=== PATIENT | male | born 1950 | race Caucasian/White ===

== ENCOUNTER → 2019-12-14 | Outpatient (CLI) | payer OTHER, MEDICARE ==
[~2019-12-14] MED LIST: ALEVE220 MG PO; ATORVASTATIN CA80 MG PO; COQ-10100 MG PO; MAGNESIUM250 M1 PO; TAMSULOSIN HCL0.4 MG PO; UNICOMPLEX M TA1 TA1 PO; VITAMIN B COMP1 EACH PO; VITAMIN C500 M1 PO; VITAMIN D3 COM1 EACH PO
== END ==
LOC: LAB 08:00
PROVIDERS: ATTEND Student in an Organized Health Care Education/Training Program
DX: Z01.812 Encounter for preprocedural laboratory examination (principal); Z11.59 Encounter for screening for other viral diseases

== ENCOUNTER 2019-12-19 08:05 | Day surgery (SDC) | payer OTHER, MEDICARE ==
[2019-12-12 13:14] LABS: HEMOGLOBIN 14.6 gm/dL (14.0-18.0); MCHC 33.9 g/dL (28.0-37.0); MCV 94.4 fL (80.0-100.0); RBC 4.55 mil/uL (4.50-6.00); RDW 13.3 % (10.5-14.5); WBC 4.3 thou/uL (4.0-11.0)
[2019-12-12 13:16] LABS: URINE BILIRUBIN NEGATIVE (Negative); URINE BLOOD NEGATIVE (Negative); URINE CLARITY CLEAR; URINE COLOR YELLOW; URINE GLUCOSE-RANDOM* NEGATIVE (Negative); URINE KETONES NEGATIVE (Negative); URINE LEUKOCYTES-REFLEX NEGATIVE (Negative); URINE NITRITE-REFLEX NEGATIVE (Negative); URINE PROTEIN (DIPSTICK) NEGATIVE (Negative); URINE SPECIFIC GRAVITY >= 1.030 (1.005-1.035); URINE UROBILINOGEN 0.2 E.U./dl (0.2-1.0)
[2019-12-12 13:22] LABS: CALCIUM 9.1 mg/dL (8.5-10.1); CREATININE 1.1 mg/dL (0.7-1.3); POTASSIUM 4.7 mmol/L (3.5-5.1)
[2019-12-12 13:28] LABS: PROTIME 10.7 Seconds (9.3-11.4)
--- NOTE | 2019-12-13 07:29 | EKG ---
[facility] [address] [place] [address] ELECTROCARDIOGRAM REPORT Name: TOMY GRANADOS Room #: PRE [facility]..#: [id number] Admission: Attend Phys: Alexander Barillas MD Discharge: Date of : 46 Report #: [id number] THIS REPORT FOR: cc: Yamileth Holly MD, Kerry B. MD Lundgren,Eros Burger MD [facility] ~ THIS REPORT FOR: //name// [facility] Test Date: 2019-12-12 Test Time: 13:16:32 Pat Name: TOMY GRANADOS Department: Room: Gender: Food Safety Specialist: [facility] : 1950 Requested By: Alexander Barillas Order Number: [id number] MD: Eros Miles Measurements Intervals [place] Rate: 57 P: 54 TN: 171 QRS: -31 QRSD: 103 T: 9 QT: 399 QTc: 389 Interpretive Statements Sinus bradycardia Left axis deviation Baseline wander in lead(s) II No previous ECG available for comparison Electronically Signed On 12-13-2019 7:29:19 CDT by Eros Miles [email or web address] <ELECTRONICALLY SIGNED> By: Eros Miles MD, [facility] 12/13/19 0729 1316 1316 Eros Miles MD, [facility] /EPI
[~2019-12-19] VITALS: Ht 182.9 cm; Wt 84.8 kg
[2019-12-19 09:28] VITALS: BP 149/74
[2019-12-19 13:12] VITALS: BP 128/69
--- NOTE | 2019-12-19 14:31 | NUR ---
PATIENT ADMITTED FROM OR, LEFT TOTAL HIP REPLACEMENT. PATIENT HAS GENARO DRESSING IN PLACE, KNEE HIGH TONIA HOSE, ICE PACK TO LEFT HIP AREA. PATIENT C/O PAIN WITH LEFT HIP/02/24. CALLED OR TO GET DR STALEY ORDER PAIN PAIN MEDS FOR 7-10 PAIN LEVEL, MORPHINE 2MG IV Q2HRS ORDERED, MORPHINE 2 MG IV GIVEN. VSS. PATIENT WANTS TO DISCHARGE TODAY, JENNY/PT WORKING WITH THE PATIENT HTIS AFTERNOON. AT BEDSIDE. PATIENT HAS RIGHT AV IV IN PLACE, IV FLUIDS ORDERED. NO C/O NAUSEA. WILL WONTINUE TO MONITOR.
[2019-12-19 21:09] VITALS: BP 126/69
--- NOTE | 2019-12-20 03:20 | NUR ---
ASSUMED PT CARE AT 1900. PT IS A&OX4. PAIN BEING MANAGED WITH PO PAIN MEDS. UP TO TOILET MULTIPLE TIMES TONIGHT, PT DOES WELL AMBULATING WITH WALKER AND STANDBY. RIGHT HIP DRESSING D/C/I. FLUIDS AND ANTIBIOTICS INFUSING PER ORDER. NO COMPLAINTS AT THIS TIME, WILL CONTINUE TO MONITOR.
[2019-12-20 04:23] VITALS: BP 113/55
[2019-12-20 06:45] LABS: HEMATOCRIT 33.5 % (42.0-52.0); MCH 33.5 pg (26.0-34.0); MCHC 35.8 g/dL (28.0-37.0); MCV 93.4 fL (80.0-100.0); RBC 3.58 mil/uL (4.50-6.00); WBC 8.9 thou/uL (4.0-11.0)
--- NOTE | 2019-12-20 09:19 | NUR ---
ASSESSMENT: CM REVIEWED CHART AND SPOKE WITH PATIENT. PT REPORTS THAT HE LIVES AT HOME WITH HIS . PT REPORTS ABOUT THREE STEPS TO ENTER THE HOME AND NO STEPS ONCE INSIDE. PT REPORTS THAT HE HAD BEEN INDEPENDENT WITH ADLS AND WAS USING A CANE JUST PRIOR TO ADMISSION. PT REPORTS HE HAS A 4 WHEEL WALKER AT HOME THAT WAS A FAMILY MEMBER BUT REPORTS HE IS NEEDING A 2 WHEEL WALKER. PT REPORTS NO PREFERENCE OF DME PROVIDER. CM CONTACTED LUCIANO AT [facility] WHO WILL DELIVER WALKER TO PATIENT. PT REPORTS HE HAS NOT HAD HH BEFORE OR BEEN TO A SNF. PT REPORTS HE HAS OUTPATIENT THERAPY ARRANGED AND STATES TOMORROW AT [facility]. PT REPORTS HE WILL HAVE NO FURTHER NEEDS FROM CM.
[2019-12-20 09:28] VITALS: BP 112/61
[2019-12-20 14:21] VITALS: BP 112/61
--- NOTE | 2019-12-20 15:30 | NUR ---
PT ASSESSED AT START OF SHIFT. AMBULATING OK BUT NEEDS TO BE REMINDED OF POSTURE FREQUENTLY. TEACHING DONE W/ WELL PT. PAIN MANAGED WELL W/ MEDS. DISCHARGED HOME THIS AFTERNOON W/ PLANS FOR OUTPT THERAPY TOMORROW.
--- NOTE | 2020-01-02 15:50 | O ---
[facility] [place] [address] OPERATIVE REPORT Name: TOMY GRANADOS Room #: DEP [facility]#: [id number] Admission: 12/19/19 Attend Phys: Alexander Barillas MD Discharge: 12/20/19 Date of : 46 Report #: [id number] THIS REPORT FOR: cc: Yamileth Holly MD, Kerry B. MD Abraham,Aelxander Harris MD ~ CC: Yamileth Barillas DATE OF SERVICE: 12/19/2019 PREOPERATIVE DIAGNOSIS: Right hip osteoarthritis. POSTOPERATIVE DIAGNOSIS: Right hip osteoarthritis. PROCEDURE: Right total hip arthroplasty. SURGEON: Alexander Barillas MD. FIRE ENGINE OPERATOR: Adamaris Alvarado PA-C. INDICATIONS FOR FIRE ENGINE OPERATOR: Throughout the case, extensive retraction and manipulation of the hip including dislocation and reduction was required. This was afforded to me by my assistant secretary. ANESTHESIA: LMA. IMPLANTS: [employer] size 56 R3 acetabular cup with 1 acetabular screw, a size 14 high offset Synergy Press-Fit stem and a size 40+4 Oxinium head. ESTIMATED BLOOD LOSS: 100 mL. COMPLICATIONS: None. SPECIMENS: None. CONDITION UPON LEAVING THE OPERATING ROOM: Stable. INDICATIONS FOR PROCEDURE: The patient is a 69-year-old gentleman with right hip osteoarthritis. He had failed conservative measures for this and after discussion with him, he elected for right total hip arthroplasty. DESCRIPTION OF PROCEDURE: Risks, benefits, alternatives, complications were discussed in detail with the patient including but not limited to risk of anesthesia, risk of damage to nerves, arteries, blood vessels, risk for infection, bleeding, risk for continued hip pain, leg length discrepancy, [facility] [address] [place] [address] OPERATIVE REPORT Name: TOMY GRANADOS Room #: [facility].#: [id number] Admission: 12/19/19 Attend Phys: Alexander Barillas MD Discharge: 12/20/19 Date of : 46 Report #: [id number] instability and need for reoperation. Informed consent was obtained from the patient. The right hip was appropriately marked in the preoperative holding area. IV Ancef was given for preoperative antibiotics. He was brought to the operating room and placed in supine position on operating room table. LMA anesthesia was induced without complication. He was then placed in the left lateral decubitus position with the right hip uppermost. Right hip and lower extremity were prepped and draped in normal sterile fashion. Timeout was performed properly identifying the patient and procedure as well as the instrumentation and implants. All in the operating room were in agreement. Standard posterior approach to the hip was made with 10 blade through the skin. Dissection was taken down to fascia with Bovie cautery and the fascia was cleaned off with Castrejon elevator. Fresh 10 blade was used to make a fascial incision. This was taken proximally and distally with curved Brooks scissor. Charnley retractor was placed. Trochanteric bursa was taken down with Bovie cautery. Piriformis tendon was identified, tagged and taken down with Bovie. Short external rotators were also taken down with Bovie cautery. Capsulotomy was made and capsule ends were tagged for later repair. Hip was dislocated. There was extensive osteoarthritic change of the femoral head. Femoral neck cut was made 1 cm proximal to lesser trochanter based on preoperative templating and the femoral head was removed. Deep acetabular retractors were placed. Labrum was removed sharply. Pulvinar was removed with Bovie cautery. Acetabulum was then sequentially reamed up to a size 56, at which point there was excellent bleeding cancellous bone. A size 55 trial cup was placed, found to have a good fit. Final size 56 R3 acetabular cup was placed and seated. One acetabular screw was placed for backup fixation and polyethylene liner for a 40 head was placed. Attention was then turned to the femur. This was reamed and broached up to a size 14, at which point the size 14 broach was stable. This was trialed with a high offset neck and a 40+0 head. Hip was reduced, taken through range of motion, found to be stable, found to have slight shortening on the right compared to left. It was felt we could make up for this with the final implant. Hip was dislocated and broach was removed. The final size 14 high offset Synergy Press-Fit stem was placed. This was trialed with a 40+4 head. Hip was reduced, taken through range of motion, found to be stable, found to have equal leg lengths. Hip was dislocated one last time and a final size 40+4 Oxinium head was placed. Hip was reduced, taken through range of motion, found to be stable, found to have equal leg lengths. The wound was thoroughly irrigated with normal saline. A periarticular injection consisting of morphine, ropivacaine, epinephrine and Toradol was placed around the hip joint capsule. A gram of vancomycin was placed deep in the joint. The capsule and piriformis were repaired with 0 FiberWire. Fascia was closed with 0 Vicryl, skin was closed with 2-0 Vicryl, 3-0 Monocryl. Dermabond and a GENARO dressing was [address] [address] OPERATIVE REPORT Name: TOMY GRANADOS Room #: DEP [facility]#: [id number] Admission: 12/19/19 Attend Phys: Alexander Barillas MD Discharge: 12/20/19 Date of : 46 Report #: [id number] applied. The patient tolerated this procedure well and went to recovery room under care of anesthesia postoperatively. <ELECTRONICALLY SIGNED> By: Alexander Barillas MD 01/02/20 1550 1151 1225 Alexander Barillas MD /nt
== END 2019-12-20 15:24 | disposition home or self-care (01) ==
LOC: OR 08:05 → 4S 12:30 → OR 14:59
PROVIDERS: ATTEND Orthopaedic Surgery
DX: M16.11 Unilateral primary osteoarthritis, right hip (principal); M25.551 Pain in right hip; M24.151 Other articular cartilage disorders, right hip; E78.00 Pure hypercholesterolemia, unspecified; Z98.890 Other specified postprocedural states; Z79.899 Other long term (current) drug therapy; Z85.46 Personal history of malignant neoplasm of prostate; Z90.49 Acquired absence of other specified parts of digestive tract
CPT/HCPCS: 10102; 50010; 50101; 50382; 50414; 53000; 53078; 53368; 54118; 56524; 56527; 56528; 56530; 57095; 57103; 62110; 62900; 70005